=== PATIENT | female | born 1995 | race Caucasian/White ===

== ENCOUNTER → 2018-10-04 | Outpatient (CLI) | payer MEDICARE ==
[~2018-10-04] MED LIST: BCP TD; BIRTH CONTROL; HUMALOG100 U/ML SC; LANTUS100 U/ML SC; LEVOTHYROXINE PO; METFORMIN500 MG PO; SEASONIQUE1 TAB PO; [UNRECOGNIZED DRUG - OTHER] PO
== END ==
LOC: ZCOL.LAB 16:22
DX: L05.01 Pilonidal cyst with abscess (principal)

== ENCOUNTER 2021-10-16 10:26 | Emergency (ER) | payer MEDICARE, MEDICAID ==
[~2021-10-16] VITALS: Ht 165.1 cm; Wt 72.7 kg
[~2021-10-16 10:26] MED LIST changes: +CELEXA10 MG PO
[2021-10-16 10:27] VITALS: TEMP 98.4
[2021-10-16 10:53] LABS: BASO # 0.1 K/mm3 (0.0-0.2); BASO % 1.3 % (0.0-2.0); EOS # 0.1 K/mm3 (0.0-0.7); EOS % 1.6 % (0.0-4.0); GRAN # 4.7 K/mm3 (1.4-6.5); GRAN % 76.6 % (42.2-75.2); HEMATOCRIT 39.6 % (37.0-47.0); HEMOGLOBIN 13.5 g/dl (12.5-16.0); LYMPH # 0.9 K/mm3 (1.2-3.4); LYMPH % 13.7 % (20.0-51.0); MEAN CELL VOLUME 96 fl (80.0-100.0); MEAN CORPUSCULAR HEMOGLOBIN 33 pg (27-31); MEAN CORPUSCULAR HGB CONC 34 g/dl (33.0-37.0); MEAN PLATELET VOLUME 9.2 fl (7.4-10.4); MONO # 0.4 K/mm3 (0.1-0.6); MONO % 6.3 % (1.7-9.3); PLATELET COUNT 311 K/mm3 (130-400); RED BLOOD COUNT 4.14 M/mm3 (4.10-5.30); REDCELL DISTRIBUTION WIDTH-CV 12.6 % (11.5-14.5)
[2021-10-16 11:12] LABS: ALBUMIN 3.3 gm/dL (3.5-5.0); BILIRUBIN,TOTAL 0.4 mg/dL (0.2-1.2); CALCIUM 8.6 mg/dL (8.4-10.2); CREATININE, serum 0.9 mg/dL (0.57-1.11); POTASSIUM 3.9 mmol/L (3.5-4.5); TOTAL PROTEIN 6.7 gm/dL (6.2-8.1)
[2021-10-16 12:34] VITALS: BP 128/90; PULSE 100
== END 2021-10-16 12:38 | disposition home or self-care (01) ==
LOC: COL.ER 10:26
PROVIDERS: Family Medicine
DX: E11.649 Type 2 diabetes mellitus with hypoglycemia without coma (principal); Z28.310 Unvaccinated for COVID-19
CPT/HCPCS: J0780; J7040